=== PATIENT | male | born 1940 | race Caucasian/White ===

== ENCOUNTER → 2016-09-09 | Outpatient (CLI) | payer OTHER ==
[~2016-09-09] MED LIST: ASPCH81X PO; ATOR-24 PO; INSDGI SC; INSU70IN2 SC; LEVO88TA3 PO; METO50TA7 PO; MISCTAB78; NTRGSL/4 SL; POTA20TA16 PO; TORS20TA2 PO
--- NOTE | 2016-09-09 15:12 | DIAGNOSTIC IMAGING REPORT ---
CT OF THE CHEST WITHOUT IV CONTRAST CLINICAL HISTORY: Abnormal chest x-ray. Pleural effusion. COMPARISON STUDY: Chest x-ray dated 08/01/2016 CT DOSE: 745.88 mGycm TECHNIQUE: CT of the thorax was performed from the thoracic inlet to the lung bases. Images are reviewed in the axial, sagittal, and coronal planes. IV contrast was not administered for this examination. FINDINGS: Thyroid: Imaged portions of the thyroid gland are normal in appearance. Thoracic aorta: The thoracic aorta is normal in course and caliber, noting standard 3 vessel arch anatomy. Heart: There are coronary artery calcifications present. The heart is enlarged. There is a small pericardial effusion. Lungs and pleural spaces: There is a [id number] left pleural effusion. There are left basal airspace opacities, likely atelectatic right lung is clear. Mediastinum: There are postsurgical changes of a midline sternotomy. Slight infiltration the anterior mediastinal fat is likely postsurgical. There were multiple small lymph nodes the upper limits of normal in size. Deann: There is no evidence of pathologic hilar adenopathy given the limitations of a noncontrast study. Axilla: There is no evidence of pathologic axillary lymphadenopathy Upper abdomen: Cholelithiasis Skeletal structures: There is ankylosis of the dorsal spine. IMPRESSION: 1. [id number] left pleural effusions with left lower lobe airspace opacities likely representing compressive atelectasis 2. Small pericardial effusion 3. Cholelithiasis. Electronically signed by: Dustin Muller M.D. 09/09/2016 3:11 PM Dictated Date/Time: 09/09/2016 3:07 PM
== END | disposition home or self-care (01) ==
LOC: C.CTS 14:54
PROVIDERS: ATTEND Internal Medicine Pulmonary Disease
DX: J90 Pleural effusion, not elsewhere classified (principal); K80.20 Calculus of gallbladder without cholecystitis without obstruction

== ENCOUNTER → 2016-10-13 | Outpatient (CLI) | payer OTHER ==
--- NOTE | 2016-10-13 15:09 | DIAGNOSTIC IMAGING REPORT ---
CHEST 2 VIEWS ROUTINE CLINICAL HISTORY: Pleural effusion. COMPARISON STUDY: Chest CT September 09, 2016. FINDINGS: There are median sternotomy wires, mediastinal surgical clips and a prosthetic aortic valve. Cardiomegaly is unchanged. There is no evidence for pulmonary edema. A small to moderate loculated left pleural effusion is unchanged. Associated opacity likely reflects atelectasis. IMPRESSION: No significant change in the small to moderate loculated left pleural effusion with suspected associated atelectasis. Electronically signed by: Gustavo Oden M.D. 10/13/2016 3:08 PM Dictated Date/Time: 10/13/2016 3:00 PM
== END | disposition home or self-care (01) ==
LOC: C.RAD1850 14:51
PROVIDERS: ATTEND Surgery
DX: J90 Pleural effusion, not elsewhere classified (principal)

== ENCOUNTER → 2016-11-13 | Outpatient (CLI) | payer OTHER ==
--- NOTE | 2016-11-13 15:18 | DIAGNOSTIC IMAGING REPORT ---
CHEST 2 VIEWS ROUTINE CLINICAL HISTORY: J90 Pleural [id number] dyspnea COMPARISON STUDY: 10/13/2016 FINDINGS: Unchanging blunting left lateral costophrenic angle. Lungs are grossly clear at this time. Mild stable cardiomegaly. IMPRESSION: No change from the prior study. Unchanging loculated pleural effusion versus pleural thickening left base laterally. No new or interval process. Electronically signed by: Philip Salgado M.D. 11/13/2016 3:17 PM Dictated Date/Time: 11/13/2016 3:16 PM
== END | disposition home or self-care (01) ==
LOC: C.RAD1850 15:05
PROVIDERS: ATTEND Physician Assistant
DX: J90 Pleural effusion, not elsewhere classified (principal)

== ENCOUNTER → 2017-02-16 | Outpatient (CLI) | payer OTHER ==
--- NOTE | 2017-02-16 11:48 | DIAGNOSTIC IMAGING REPORT ---
CHEST 2 VIEWS ROUTINE CLINICAL HISTORY: Pleural effusion. COMPARISON STUDY: Chest radiograph November 13, 2016. FINDINGS: There is no pneumothorax. A small to moderate loculated left pleural effusion is similar to prior exam of November 13, 2016. Left basilar opacity is unchanged. There are median sternotomy wires and a prosthetic aortic valve. There is no evidence of pulmonary edema. IMPRESSION: No significant change in a small to moderate left pleural effusion. Electronically signed by: Gustavo Oden M.D. 02/16/2017 11:47 AM Dictated Date/Time: 02/16/2017 11:45 AM
== END | disposition home or self-care (01) ==
LOC: C.RAD1850 11:27
PROVIDERS: ATTEND Physician Assistant
DX: J90 Pleural effusion, not elsewhere classified (principal)